=== PATIENT | female | born 1955 | race Caucasian/White ===

== ENCOUNTER 2017-02-03 00:20 | Day surgery (SDC) | payer MEDICARE ==
[2017-02-03] VITALS (15 sets, daily range): BP systolic 120–190; BP diastolic 8–108; PULSE 45–60; RESP 13–20; O2SAT 92–99
[~2017-02-03] VITALS: Ht 151.8 cm; Wt 38.5 kg
[~2017-02-03 00:20] MED LIST: ASPI325T32 PO; ATEN50TA PO; CLOP75TA3 PO; DOXY100C2 PO; HYDR-4003 PO; PHEN100C11 PO
[2017-02-03 08:17] LABS: BASOPHILS % (AUTO) 0.5 % (0-3); EOSINOPHILS % (AUTO) 1.1 % (0-5); MONOCYTES % (AUTO) 6.4 % (4-12); Mean Corpuscular Hemoglobin 29.9 pg (27.0-35.0); Mean Corpuscular Volume 91.9 fL (81-100); NEUTROPHILS % (AUTO) 68.6 % (40-74); Platelet Count 528 bil/L (150-400)
[2017-02-03 08:34] LABS: INR 1.08 ratio
[2017-02-03] MEDS ORDERED: Heparin 1,000 Unit/mL 10 mL Inj ONE (08:42)
[2017-02-03] MEDS ORDERED: Medical Marijuana INH (08:43)
[2017-02-03] MEDS ORDERED: Heparin 10,000 Unit/1,000 mL NS Premix IV ONE (08:43)
[2017-02-03] MEDS ORDERED: [UNRECOGNIZED DRUG - OTHER] TOPICAL (08:43)
--- NOTE | 2017-02-03 08:44 | NUR ---
[facility] Admit Admitted to [facility] 3 about 0750. VSS. Denies pain. IVs started and labs sent. Tele SB in 40's and 50's. Unable to doppler pulses in left foot. Dressings x2 to left doshi and left great toe c/d/i. Right pedal pulses weakly dopplerable. See EMR for further info and assessment. Procedure and recovery reviewed and verbalizes understanding. Dr. Shaw in to consent pt. Awaiting laborer heading.
[2017-02-03] MEDS ORDERED: fentaNYL-PF 50 mCg/mL 2 mL Inj ONE ×2 (09:22→10:09)
[2017-02-03] MEDS ORDERED: Vancomycin 1,000mg/200 mL NS IV ONE (09:35)
[2017-02-03] MEDS ORDERED: Heparin 5,000 Units/500 mL NS Premix IV ONE (10:46)
[2017-02-03] MEDS ORDERED: Protamine Sulfate 10 mg/mL 5 mL Inj ONE (11:17)
[2017-02-03] MEDS ORDERED: 0.9% Sodium Chloride 50 ML ONE (11:17)
--- NOTE | 2017-02-03 11:58 | NUR ---
Received To labeling specialist a little after 0900. Received about 1135. Hypertensive and having left knee pain like she does at home. Usually uses Marijuana balm on it but not available. Kary Gonzalez RN notifying Dr. Shaw. Sheath still in on arrival. Left knee assisted to POC. Sheath pulled almost immediately by Alla from labeling specialist. Pressure held and gauze placed. Pulses unchanged from baseline. Pt. unable to hold still and Alla placed femstop at 70mmhg. Other VS stable and still SB in 40's and 50's. Continue to monitor per orders. Addendum: 02/03/17 at 1234 by PREETI HILLIARD RN Pt. pain is intermittent. Dozing in between waking with 8/[address] Shaw ordered Vicodin and 1 po given per pt. request. Now dozing with more stable VS
--- NOTE | 2017-02-03 12:05 | DRSVH ---
PROCEDURE: ANGIO 1. Abdominal aortogram. 2. Bilateral pelvic arteriography. 3. Selective injection of left external iliac artery. 4. Conscious sedation x132 minutes. . INDICATIONS: Occluded left external iliac artery. Nonhealing left lower extremity ulcers. COMPARISON: [facility], XA, REVASC ILIAC W/ STENT, 03/07/2016, 9:30. [facility], MR, MR ANGIO RUNOFF, 01/31/2017, 17:30. TECHNIQUE: Informed, written consent from the patient was obtained prior to the procedure. Patient wa s brought to the angiography suite, and conscious sedation was administered intravenously by care home staff, while continuous cardiorespiratory monitoring was performed. Maximal sterile barrier t echnique, hand hygiene, skin preparation, and sterile ultrasound technique (if ultrasound was utilize d) was followed. A mask, sterile gown, sterile gloves, a large sterile sheet, hand hygiene, and 2% ch lorhexidine or iodine was utilized for skin antisepsis. The bilateral groins were prepped and draped sterilely, and the skin and subcutaneous tissues overlying the right common femoral artery were infus ed with lidocaine. The right common femoral artery was accessed retrograde with a micropuncture set. A 5 Mosotho sheath, which a 5 Mosotho pigtail catheter was advanced into the perirenal abdominal aorta and was injected for AP aortography. Intravenous heparin was administered. Pigtail catheter was withd rawn into the distal dome we were injected for bilateral oblique pelvic arteriography. The left commo n iliac artery was selected with a pigtail catheter. A 5 Mosotho Ansell sheath was advanced into the l eft common iliac artery. A 4 Mosotho nontapered angled catheter, a frontrunner device, and a 4 Mosotho C2 catheter were used to recanalize the left external iliac artery. However, reentry to the common fe moral artery could not be performed. The sheath was removed and pressure was applied for hemostasis f ollowing protamine administration. FLUOROSCOPY TIME: 52.8 minutes FINDINGS: Abdominal aorta demonstrates moderate diffuse plaque and mild diffuse stenosis. Right: The common iliac artery is patent. Moderate origin stenosis involving internal iliac artery. External iliac artery demonstrates mild midportion stenosis. High-grade stenosis within the mid common femora l artery. High-grade stenosis of the profunda femoral artery origin. Superficial femoral artery occlu ded. Left: Common iliac artery is mildly diffusely stenotic. Internal iliac arteries patent. External iliac ted ry is occluded. Reconstituted flow within the common femoral artery is present, which appears severel y diffusely stenotic. Superficial femoral artery occluded. Profunda femoris patent. IMPRESSION: 1. Unsuccessful attempt at antegrade recanalization of left external iliac artery. Patient will retur n in roughly one week for attempt at retrograde recanalization. Dictated by: Stephanie Shaw M.D. on 02/03/2017 at 11:58 Approved by: Stephanie Shaw M.D. on 02/03/2017 at 12:03
[2017-02-03] MEDS: HYDROcodone-APAP 5-325 mg Tablet PO PRN ×2 (12:10→15:07)
--- NOTE | 2017-02-03 16:44 | NUR ---
Pain/Recovery/Lynne/Transfer of care Pain controlled with with Vicoding po. See EMR for exact times and assessment. VSS. Right groin without bleeding or hematoma. Femstop pressure decreased by half after 1hr and removed at 1400. Attempted bedpan x2 but unable to void. Lynne placed per orders and about 500ml clear yellow urine returned. States feels much better. Assisted wtih adjusting position for comfort prn. Refused food but tolerating po fluids and meds. IVF infused per order. Ride contacted per pt. request. Discharge paperwork prepared. Report given to Kary Gonzalez RN
--- NOTE | 2017-02-03 18:25 | NUR ---
[facility] DISCHARGE ASSUMED CARE OF PT AT 1700. RIGHT GROIN HAS REMAINED SOFT, NON TENDER, NO BLEEDING OR HEMATOMA NOTED. RAYO WAS DISCONTINUED. PT USED BEDSIDE COMMODE AND WAS ASSISTED WITH GETTING DRESSED. AFTER THIS ACTIVITY NO BLEEDING OR HEMATOMA NOTED TO RIGHT GROIN. DISCHARGE INSTRUCTIONS WERE REVIEWED WITH PT AND SHE VERBALIZED UNDERSTANDING. SHE WILL RETURN NEXT WEEK FOR THE SAME PROCEDURE. PT WAS DISCHARGED AT 1805 PER W/C TO PRIVATE CAR WITH FRIEND IN STABLE CONDITION.
== END 2017-02-03 23:59 | disposition home or self-care (01) ==
LOC: SPI 00:20
PROVIDERS: ATTEND Radiology Diagnostic Radiology
DX: I70.248 Atherosclerosis of native arteries of left leg with ulceration of other part of lower leg (principal); L97.529 Non-pressure chronic ulcer of other part of left foot with unspecified severity; L97.829 Non-pressure chronic ulcer of other part of left lower leg with unspecified severity; I70.8 Atherosclerosis of other arteries; I70.0 Atherosclerosis of aorta; I70.201 Unspecified atherosclerosis of native arteries of extremities, right leg; Z95.820 Peripheral vascular angioplasty status with implants and grafts; Z86.73 Personal history of transient ischemic attack (TIA), and cerebral infarction without residual deficits; I10 Essential (primary) hypertension; F17.210 Nicotine dependence, cigarettes, uncomplicated; Z79.82 Long term (current) use of aspirin; Z79.02 Long term (current) use of antithrombotics/antiplatelets
CPT/HCPCS: 36246; 36415; 75625; 75716; 80048; 85025; 85610; 99152; 99153; C1730; C1769; J1200; J1644; J2250; J2720; J3010; J3370; Q9967

== ENCOUNTER 2017-02-08 00:45 | Day surgery (SDC) | payer MEDICARE ==
[2017-02-08] VITALS (13 sets, daily range): BP systolic 132–215; BP diastolic 66–95; PULSE 40–66; RESP 16; O2SAT 94–100
[~2017-02-08] VITALS: Ht 152.4 cm; Wt 39.0 kg
[~2017-02-08 00:45] MED LIST changes: -CLOP75TA3 PO; -DOXY100C2 PO; -HYDR-4003 PO; +Medical Marijuana INH; +[UNRECOGNIZED DRUG - OTHER] TOPICAL
[2017-02-08 10:16] LABS: BASOPHILS % (AUTO) 0.4 % (0-3); EOSINOPHILS % (AUTO) 1.1 % (0-5); MONOCYTES % (AUTO) 7.3 % (4-12); Mean Corpuscular Hemoglobin 29.9 pg (27.0-35.0); Mean Corpuscular Volume 90.9 fL (81-100); Platelet Count 510 bil/L (150-400)
[2017-02-08] MEDS ORDERED: Heparin 10,000 Unit/1,000 mL NS Premix IV ONE (10:24)
[2017-02-08 10:35] LABS: INR 1.03 ratio
[2017-02-08] MEDS ORDERED: fentaNYL-PF 50 mCg/mL 2 mL Inj ONE ×3 (11:54→12:51)
[2017-02-08] MEDS ORDERED: Heparin 1,000 Unit/mL 10 mL Inj ONE (12:34)
[2017-02-08] MEDS ORDERED: Nitroglycerin 50,000 mcg/250 mL D5W Premix IV ONE (12:58)
[2017-02-08] MEDS ORDERED: Protamine Sulfate 10 mg/mL 5 mL Inj ONE (13:11)
--- NOTE | 2017-02-08 14:04 | NUR ---
Pt returned from laborer/key man with Lt groin puncture site and femstop on. Pt drowsy but rousable and oriented. Pt having difficulty keeping legs still and head down, MD aware.
[2017-02-08] MEDS ORDERED: HYDROmorphone 1 mg/mL Inj ONE (14:18)
[2017-02-08] MEDS ORDERED: HYDROmorphone 0.5 mg/0.5 mL iSecure Syringe IVPUSH PRN (14:35)
--- NOTE | 2017-02-08 14:38 | DRSVH ---
PROCEDURE: 1. Ultrasound guidance for left common femoral artery access. 2. Left external iliac arteriography. 3. Conventional angioplasty of left external iliac artery. 4. Drug-eluting angioplasty of left external iliac artery. 5. Conscious sedation x97 minutes. INDICATIONS: Occluded left external iliac artery stent. COMPARISON: None. TECHNIQUE: Informed, written consent from the patient was obtained prior to the procedure. Patient wa s brought to the angiography suite, and conscious sedation was administered intravenously by usp staff, while continuous cardiorespiratory monitoring was performed. Maximal sterile barrier t echnique, hand hygiene, skin preparation, and sterile ultrasound technique (if ultrasound was utilize d) was followed. A mask, sterile gown, sterile gloves, a large sterile sheet, hand hygiene, and 2% ch lorhexidine or iodine was utilized for skin antisepsis. The bilateral groins were prepped and draped sterilely, and the skin and subcutaneous tissues overlying the left common femoral artery were infuse d with lidocaine. The left common femoral artery was accessed under sonographic guidance with a micro puncture set. Contrast was injected for left common femoral arteriography. A 4 Iranian sheath was adva nced, and the left external iliac artery was recanalized using a 4 Iranian nontapered angled catheter, 035 Glidewire, as well as in a 35 J-wire. A 6 Iranian sheath was advanced and left external iliac art eriography was performed. Intravenous heparin was administered. A conventional 80 mm long balloon was used to angioplasty the left external iliac artery to 6 mm diameter. Repeat arteriography was perfor med. A drug-eluting 80 mm long balloon was then used to angioplasty left external iliac artery to 6 m m diameter followed by repeat arteriography. Intravenous protamine was administered, the sheath was r emoved during contrast administration, and pressure was applied for hemostasis. Oral Plavix therapy w as initiated following the procedure. Patient was instructed to take oral Plavix for life. Followup u ltrasound examination an outpatient visit was scheduled for 2 weeks. FLUOROSCOPY TIME: 18 minutes FINDINGS: Left: Multifocal mild stenoses within the common iliac artery are present. The left external iliac artery i s occluded. A mid extra iliac artery stent is present. Following final angioplasty, there is restored flow within the left external iliac artery, and no residual stenosis. There is moderate diffuse resi dual stenosis of the common femoral artery. IMPRESSION: 1. Status post recanalization and drug-eluting angioplasty of the left external iliac artery, with no residual stenosis. 2. Moderate residual common femoral artery stenosis. 3. Followup Doppler ultrasound and outpatient visit will be scheduled for 2 weeks. 4. Patient was instructed to take oral Plavix for life. Dictated by: Stephanie Shaw M.D. on 02/08/2017 at 14:29 Approved by: Stephanie Shaw M.D. on 02/08/2017 at 14:36
[2017-02-08] MEDS ORDERED: 0.9% Sodium Chloride 250 ML BOLUS IV PRN (16:25)
[2017-02-08] MEDS ORDERED: Ondansetron 2 mg/mL 2 mL Inj IVPUSH PRN (16:25)
[2017-02-08] MEDS ORDERED: 0.9% Sodium Chloride 400 ML (4 HRS) IV ONE (16:25)
--- NOTE | 2017-02-08 19:55 | NUR ---
Pt discharged to home, via wheelchair, accompained by spouse. Pt's vss, Lt groin site CDI with no bleeding/hematoma noted. Pt given prescription and all discharge instructions, pt had no further questions at time of d/c.
== END 2017-02-08 23:59 | disposition home or self-care (01) ==
LOC: SOUO 00:45
PROVIDERS: ATTEND Radiology Diagnostic Radiology
DX: I70.8 Atherosclerosis of other arteries (principal); I70.245 Atherosclerosis of native arteries of left leg with ulceration of other part of foot; L97.529 Non-pressure chronic ulcer of other part of left foot with unspecified severity; I70.248 Atherosclerosis of native arteries of left leg with ulceration of other part of lower leg; L97.829 Non-pressure chronic ulcer of other part of left lower leg with unspecified severity; I10 Essential (primary) hypertension; F17.200 Nicotine dependence, unspecified, uncomplicated; Z86.73 Personal history of transient ischemic attack (TIA), and cerebral infarction without residual deficits; Z79.82 Long term (current) use of aspirin; Z79.02 Long term (current) use of antithrombotics/antiplatelets
CPT/HCPCS: 36415; 37220; 80048; 85025; 85610; 99152; 99153; C1725; C1769; C2623; J0131; J1170; J1644; J2250; J2720; J3010; Q9967

== ENCOUNTER 2017-02-14 15:48 | Emergency (ER) | payer MEDICARE ==
[~2017-02-14] VITALS: Ht 149.9 cm; Wt 38.2 kg
[2017-02-14 15:51] VITALS: BP 143/84; PULSE 80; RESP 16; O2SAT 96
--- NOTE | 2017-02-14 16:02 | ED.REPORT ---
HPI-Extremity Problem Lower Date of Service Feb 14, 2017 ED Provider: History of Present Illness: stent placed by Dr. Fisher a few days ago in groin in left groin. Now with pain and cramping in left lower leg. being seen in [facility] for wound care. Has PVD. Procedure was done 02/08, noticed changes a few days after surgery. Had check up yesterday with oneal. asked to return in 3 months. problem with prescription for plavix. did not get filled Nursing Notes Stated Complaint: LEG PAIN Chief Complaint: Extremity Trauma Nursing Notes Reviewed: Yes Allergies: Coded Allergies: Penicillins (Verified Allergy, Severe, ITCHING, 02/03/17) Sulfa (Sulfonamide Antibiotics) (Verified Allergy, Severe, ITCHING, 02/03/17 ) venom-honey bee (Verified Allergy, Severe, 02/03/17) Scheduled Aspirin (Aspirin) 325 Mg Tablet 325 MG PO DAILY Atenolol (Atenolol) 50 Mg Tablet 50 MG PO DAILY Phenytoin Sodium Extended (Phenytoin Sodium Extended) 100 Mg Capsule 200 MG PO DAILY Scheduled PRN ([Marijuana [place]]) 1 APPLIC TOPICAL PRN For Pain General Time Seen by MD: 16:01 Chief Complaint Other (pain in left lower leg) Hx Obtained From: Patient, Spouse Severity: Current: Pain level 8 out of 10 Past Medical History Past Medical History stroke with residual right sided weakness hypertension seizures currently on dilantin Past Surgical History right shoulder surgery Smoking History Current Every Day Smoker (was smoking 2 packs a day reporting stopped, strong odor on patient) Social History Alcohol Use: "Social" Drug Use: Denies drug use Other Social History: Occupation lives with 02/14/2017 Ambulatory Status Wheelchair Review of Systems Basic Review of Systems Eyes: Vision NL, No discharge : No dysuria, No frequency Psychiatric: Normal thought content Physical Exam Initial Vital Signs Vital Signs (First) Date Time Temp Pulse Resp B/P Pulse Ox O2 Delivery O2 Flow Rate FiO2 02/14/17 15:51 36.5 80 16 143/84 96 Room Air Initial VS: Reviewed, Vital signs normal General/Constitutional: Well-developed, Well-nourished Head / Eyes: Atraumatic, Normocephalic, PERRL ENT: Mucous membranes moist, Conjunctiva normal, No scleral icterus Neck: Supple, Non-tender, Full range of motion Respiratory: Breath sounds normal, Clear to auscultation, No respiratory distress Cardiovascular: Regular rate & rhythm, Heart sounds normal, Intact distal pulses Abdomen / GI: Soft, Non-tender, No guarding, No rebound, No distention Back: No CVA tenderness Lymphatic: No lymphadenopathy Upper Extremities: Vascular intact, Neuro intact, No swelling, No tenderness Skin: Warm, Dry, No cyanosis Neurologic: Alert, Oriented, Nonfocal Psychiatric: Mood/affect normal, Behavior normal, Normal thought content left lower leg when held over the bed turns red from knee down. When up on bed, ertyma is mottled and is mostly on foot. No palpable pulses Appearance / Presentation: Positive: Frail, Ill appearing/not toxic, Underweight Interpretation & Diagnostics Interpretation & Diagnostics: Verbal report, no blood flow to left lower leg Lab Results Interpretation Result Diagram: 02/14/17 1645 02/14/17 1645 Test 02/14/17 16:45 White Blood Count 18.2th/mm3 (3.8-10.1) Red Blood Count 3.95mil/mm3 (3.90-5.20) Hemoglobin 11.9g/dL (12.0-15.6) Hematocrit 35.7% (35.0-46.0) Mean Corpuscular Volume 90.4fL (81-100) Mean Corpuscular Hemoglobin 30.1pg (27.0-35.0) Mean Corpuscular Hemoglobin Concent 33.3% (32.0-37.0) Red Cell Distribution Width 14.0% (12.3-15.4) Platelet Count 662bil/L (150-400) Neutrophils (%) (Auto) 74.5% (40-74) Lymphocytes (%) (Auto) 16.2% (14-46) Monocytes (%) (Auto) 8.2% (4-12) Eosinophils (%) (Auto) 0.6% (0-5) Basophils (%) (Auto) 0.2% (0-3) Prothrombin Time 10.5sec (8.1-12.5) Prothromb Time International Ratio 0.98ratio Sodium Level 140mEq/L (134-144) Potassium Level 4.4mEq/L (3.5-5.2) Chloride Level 102mEq/L (97-108) Carbon Dioxide Level 23mmol/L (18-29) Blood Urea Nitrogen 12mg/dL (8-27) Creatinine 0.46mg/dL (0.57-1.00) Estimat Glomerular Filtration Rate 198mL/min (>59) Glucose Level 108mg/dL (60-99) Lactic Acid Level 1.2mmol/L (0.4-2.0) Calcium Level 9.4mg/dL (8.5-10.1) Total Bilirubin 0.2mg/dL (0.0-1.2) Aspartate Amino Transf (AST/SGOT) 20U/L (0-50) Alanine Aminotransferase (ALT/SGPT) 15U/L (0-32) Alkaline Phosphatase 83U/L (25-165) Total Protein 6.9g/dL (6.4-8.4) Albumin 3.3g/dL (3.4-5.0) Procalcitonin 0.24ng/mL (0.00-0.08) Re-Eval/Medical Decision Med Decision/Clinical Course 61 year old female presents to the ER For evualation of left lower leg occulsion. Patient has severe PVD. Consult with Dr. Davenport and Eros Nava. Working on obtaining vascular surgery and will transfer if availabe Discharge & Departure Impression: Primary Impression: Arterial occlusion, lower extremity Referrals: Noemi Tierney MD (PCP) EDSupervising Provider for APC: Jaiden Nava DO copies to: Noemi Tierney MD, Sue ARNP Feb 14, 2017 16:02
[2017-02-14 16:52] LABS: BASOPHILS % (AUTO) 0.2 % (0-3); EOSINOPHILS % (AUTO) 0.6 % (0-5); MONOCYTES % (AUTO) 8.2 % (4-12); Mean Corpuscular Hemoglobin 30.1 pg (27.0-35.0); Mean Corpuscular Volume 90.4 fL (81-100); NEUTROPHILS % (AUTO) 74.5 % (40-74); Platelet Count 662 bil/L (150-400)
[2017-02-14] MEDS ORDERED: HYDROmorphone 0.5 mg/0.5 mL iSecure Syringe IVPUSH ONE (17:05)
[2017-02-14 17:10] LABS: INR 0.98 ratio
[2017-02-14] MEDS ORDERED: Heparin Protocol Boluses IVPUSH PRN (17:45)
[2017-02-14] MEDS ORDERED: Heparin 25K Unit/500mL 0.45 NS 25,000 UNIT in IV Premix 1 EACH IV SCH (17:45)
[2017-02-14] MEDS ORDERED: Heparin Initial Bolus IVPUSH ONE (17:45)
[2017-02-14] MEDS ORDERED: HYDROmorphone 1 mg/mL Inj IVPUSH ONE (17:50)
--- NOTE | 2017-02-14 18:53 | DRSVH ---
PROCEDURE: US VEINOUS LEG DUPLEX UNILATERAL, LEFT INDICATIONS: Left lower extremity pain.? clot TECHNIQUE: Real-time imaging, as well as color and pulse Doppler interrogation, were performed of the lower extr emity deep veins from the inguinal ligament to the popliteal fossa. COMPARISON: None. FINDINGS: Thrombus is identified in the left popliteal vein. IMPRESSION: Abnormal study demonstrating left popliteal vein deep vein thrombosis. Dictated by: Vanita Graham MD, PhD on 02/14/2017 at 18:51 Approved by: Vanita Graham MD, PhD on 02/14/2017 at 18:52
--- NOTE | 2017-02-14 18:55 | DRSVH ---
PROCEDURE: US DUPLEX DOPPLER UNILATERAL LEG ARTERIES, LEFT INDICATIONS: Left lower extremity pulseless TECHNIQUE: Color and pulse Doppler interrogation was performed of the left lower extremity arterial system, with image documentation. COMPARISON: None. FINDINGS: There is absence of flow in the left common femoral artery, left superficial femoral artery, the left deep femoral artery and the left popliteal artery. Posterior tibial artery: 6 point border cm/sec, with monophasic flow. Anterior tibial artery/dorsalis pedis: 6.4 cm/sec, with monophasic flow. IMPRESSION: Absence of flow in the left common femoral artery, left superficial femoral artery and l eft popliteal artery compatible with occlusion. Dictated by: Vanita Graham MD, PhD on 02/14/2017 at 18:52 Approved by: Vanita Graham MD, PhD on 02/14/2017 at 18:54
[2017-02-14 19:15] VITALS: BP 176/86; PULSE 68; RESP 13; O2SAT 94
[2017-02-14] MEDS ORDERED: Alum-Mag Hydrox-Simeth 30 mL Suspension PO PRN (19:35)
[2017-02-14] MEDS ORDERED: Polyethylene Glycol (PEG) 17 Gm Powder PO PRN (19:35)
[2017-02-14] MEDS ORDERED: Ondansetron 2 mg/mL 2 mL Inj IVPUSH PRN (19:35)
--- NOTE | 2017-02-14 21:10 | PCM.HPMED ---
Subjective Date of Service Feb 14, 2017 Primary Provider: Admitting Physician: Blade Page MD Primary Care Physician: Noemi Tierney MD Attending Physician: Blade Page MD Admit Status: From the Emergency Department Chief Complaint: Left leg pain History of Present Illness: 61-year-old female with past medical history remarkable for hemorrhagic stroke in 2002, seizure disorder post stroke, tobacco dependency and peripheral arterial disease presents with left leg pain occurring for the last several days. The patient states that the pain in her left leg feels as though a charley horse is occurring sporadically in every muscle in her leg. The patient states that it feels as though somebody is grabbing randomly at different points in her leg and states the pain occurs for 5-10 seconds before it abates and moves to a new position. The pain is described as sharp and rated at 11 out of 10 at its worst. The patient states that the pain is made worse by leaving her leg extended and improves with continual movement of the left leg. The patient describes associated cold sensation in her left leg which has been chronic the last several years. She also has nonhealing injuries to the foot and anterior distal lower extremity which is followed by wound care. The patient states that though she is a lifelong smoker she is attempting to quit and has not had a cigarette within the last 4 days. Patient denies fever or chills, shortness of breath, chest pain, abdominal pain, dysuria or increased urgency or frequency, unusual bruising or bleeding. The patient admits to a recent cough that she states is chronic from smoking. Patient also states states she has been having intermittent constipation and diarrhea. Review of Systems: A comprehensive review of systems is obtained and all are negative except for what is included in the history of present illness. Allergies Coded Allergies: Penicillins (Verified Allergy, Severe, ITCHING, 02/03/17) Sulfa (Sulfonamide Antibiotics) (Verified Allergy, Severe, ITCHING, 02/03/17 ) venom-honey bee (Verified Allergy, Severe, 02/03/17) Home Medications Atenolol 50 MG PO DAILY Phenytoin Sodium Extended 200 MG PO DAILY She denies taking daily aspirin [facility] Hemorrhagic stroke in 2002 reportedly at [facility] Seizure disorder occurring post stroke Peripheral arterial disease Tobacco dependency disorder Anorexia Hypertension Surgical History Numerous artery stenting procedures in her lower extremities bilaterally Right arthroscopic shoulder surgery Family History Mother had strokes and a pacemaker and at 89 years old Father had stroke and pacemaker and also at 89 years old Brother has diabetes and is alive at 64 Social History Occupation: does not work Hx Alcohol Use: Yes (occassional onc a month ) Hx Substance Use: Yes (marijuana medical) Hx Tobacco Use: Yes Smoking Status: Current Every Day Smoker Years of Smokin Living Arrangement: with Family Exam Vital Signs Vital Sign - Last Date Time Temp Pulse Resp B/P Pulse Ox O2 Delivery O2 Flow Rate FiO2 02/14/17 19:15 68 13 176/86 94 Room Air 02/14/17 15:51 36.5 Exam Gen.: Thin 61-year-old female chronically ill appearing and mild acute distress due to leg pain, constantly shifting in bed Eyes: Pupils equal round reactive light, extraocular motion intact, anicteric sclerae, noninjected conjunctiva HENT: Normocephalic atraumatic, mild hirsutism, oropharynx clear without central cyanosis or cobblestoning mucosa Neck: Supple, trachea midline, without noted JVD Cardiovascular: Regular rate and rhythm without significant noted murmurs rubs or gallops Lungs: Coarse breath sounds appearing to be upper airway transmission, improves after clearing throat, without wheezing noted Abdomen: Soft, non-tender, nondistended, normoactive bowel sounds Extremities: 2+ Peripheral edema noted in bilateral lower extremities localized to the feet, left leg is notably cold to the touch with decreased capillary refill, decreased pulses and dorsalis pedis and posterior tibialis bilaterally left worse than right, onychomycosis noted in the lower extremities, new appearing bandages over anterior tibial wound and foot wound on left lower extremity : No Lynne in place Neuro: No focal neurologic deficits noted, patient is able to move all's extremities spontaneously, residual right sided weakness post stroke Psych: Normal mood and affect Lab and Diagnostics Result Diagram: 02/14/17 1645 02/14/17 1645 X-Rays, CTs and MRIs US VEINOUS LEG DUPLEX UNILATERAL, LEFT IMPRESSION: Abnormal study demonstrating left popliteal vein deep vein thrombosis. Dictated by: Vanita Graham MD, PhD on 02/14/2017 at 18:51 Approved by: Vanita Graham MD, PhD on 02/14/2017 at 18:52 US DUPLEX DOPPLER UNILATERAL LEG ARTERIES, LEFT IMPRESSION: Absence of flow in the left common femoral artery, left superficial femoral artery and left popliteal artery compatible with occlusion. Dictated by: Vanita Graham MD, PhD on 02/14/2017 at 18:52 Approved by: Vanita Graham MD, PhD on 02/14/2017 at 18:54 Assessment & Plan 61-year-old female with past medical history remarkable for hemorrhagic stroke in 2002, seizure disorder post stroke, tobacco dependency and peripheral arterial disease presents with left leg pain occurring for the last several days. # Likely occlusion of left common femoral artery, left superficial femoral artery and left popliteal artery - Noted on duplex ultrasound - The patient was started on a heparin drip in the emergency department - Pain medication with Dilaudid 0.5 mg every 2 when necessary for pain - Cyclobenzaprine 10 mg 3 times a day for muscle spasm when necessary - The patient will be transferred to [facility] in accordance with interventional radiology and vascular surgery recommendations # left popliteal vein deep vein thrombosis - The patient was started on a heparin drip in the emergency department CODE STATUS: Full code the patient reportedly has a living will at [facility] in [facility] after suffering a stroke in 2002 The patient will be transferred to [facility] for likely vascular intervention on multiple left lower extremity arterial occlusions. Resuscitation Status: CPR: Attempt Resuscitation Attending Statement The patient was seen and examined together with Dr. Cabrera on 02/14 and I agree with the history, exam and plan as outlined in the note above. Clark Joyner DO Feb 14, 2017 21:10 Blade Page MD Feb 16, 2017 08:05
[2017-02-14] MEDS ORDERED: HYDROmorphone 0.5 mg/0.5 mL iSecure Syringe IVPUSH PRN ×2 (21:40→21:45)
[2017-02-14 21:48] VITALS: BP 193/92; PULSE 79; RESP 18; O2SAT 93
--- NOTE | 2017-02-14 21:48 | DRSVH ---
PROCEDURE: MRA ANGIOGRAM RUNOFF ([id number]) INDICATIONS: ? occulsion TECHNIQUE: Precontrast axial and coronal TruFISP acquired through the abdomen and pelvis. Multi-station dynamic coronal MRA using Care Bolus timing from the kidneys to the ankles during the administration of cont rast, with 3-dimensional maximum intensity projection (MIP) reformats constructed. COMPARISON: [facility], MR, MR ANGIO RUNOFF, 01/31/2017, 17:30. FINDINGS: Image quality: Excellent. ABDOMEN: Aorta: Aorta is normal in caliber and is patent. Renal and mesenteric arteries: Single right renal artery is patent. Two left renal arteries are leodan ssly patent. 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 High-grade stenosis noted in the origin o f the superior mesenteric artery. There is flow distal to the high-grade stenosis in the origin of t he superior mesenteric artery. Inferior mesenteric artery is hypertrophy and supplies appear mesente juan collateral flow via a marginal artery of [place]. Extravascular soft tissues: Visualized solid organs are normal in size on limited pre-contrast image s. Bowel loops are normal in caliber. No free fluid. No retroperitoneal or mesenteric adenopathy b y size criteria. No ventral hernias. Bones: Marrow demonstrates normal overall signal. PELVIS AND BILATERAL LOWER EXTREMITIES: Right sided vessels: Right common iliac artery is patent. Mild atherosclerotic irregularity noted o rigin of the right common iliac artery. Right internal iliac artery is patent. The right external i liac artery is patent. Short segment, high-grade stenoses noted in the right common femoral artery i nvolving the mid and distal portions of the vessel. Very slow flow is noted in the right superficial femoral artery. There are prominent collateral vessels arising from the right deep femoral artery w hich supplied the right popliteal artery. Normal flow noted in the right popliteal artery. Flow is noted in the trifurcation vessels. High-grade stenosis of the origin of the right anterior tibial ar alejandro. Left sided vessels: The left common iliac artery is occluded at its origin. Absence of flow noted i n the left internal iliac artery, left external iliac artery, left common femoral artery, left superf icial femoral artery and left popliteal artery There is minimal reconstitution of flow in the left d eep femoral artery. There is absence of flow in the left trifurcation vessels. IMPRESSION: 1. 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 2. High-grade stenoses involving the right common femoral artery. 3. High-grade stenosis to near occlusion of the right superficial femoral artery. 4. Reconstitution of flow in the right popliteal artery via right deep femoral artery collaterals. 5. High-grade stenosis of the origin of the right anterior tibial artery. 6. Occlusion of the celiac artery. 7. 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 8. Findings discussed with Dr. Davenport and Dr. Nava on 02/14/2017. Dictated by: Vanita Graham MD, PhD on 02/14/2017 at 21:34 Approved by: Vanita Graham MD, PhD on 02/14/2017 at 21:46
== END 2017-02-14 22:38 | disposition short-term general hospital (02) ==
LOC: SED 15:48 → UNDOADMIN 20:02 → OSC 20:02 → SED 22:38
DX: I74.3 Embolism and thrombosis of arteries of the lower extremities (principal); I10 Essential (primary) hypertension; F17.200 Nicotine dependence, unspecified, uncomplicated; Z88.0 Allergy status to penicillin; Z88.2 Allergy status to sulfonamides; Z79.82 Long term (current) use of aspirin
CPT/HCPCS: 36415; 80053; 83605; 84145; 85025; 85610; 87040; 93926; 93970; 96374; 96375; 96376; 99285; A9585; C8900; C8912; C8918; J1170; J1644